=== PATIENT | male | born 1945 | race African-American/Black ===

== ENCOUNTER 2017-10-21 00:19 | Emergency (ER) | payer OTHER ==
[~2017-10-21] VITALS: Ht 177.8 cm; Wt 70.3 kg
[~2017-10-21 00:19] MED LIST: ROXICODONE5 MG PO
[2017-10-21 00:57] LABS: HEMATOCRIT 32.7 % (38.0-50.0); HEMOGLOBIN 10.5 G/DL (12.5-16.6); MCH 27.5 PG (29.0-34.0); MCHC 32.1 G/DL (30.0-36.0); MCV 85.6 FL (86-99); PLATELET COUNT 291 K/uL (156-360); RED BLOOD COUNT 3.82 M/uL (4.00-5.50); WHITE BLOOD COUNT 8.9 K/uL (4.1-10.2)
[2017-10-21 01:17] LABS: CHLORIDE 107 mEq/L (99-109); POTASSIUM 4.4 mEq/L (3.7-5.4); SODIUM 141 mEq/L (136-147)
[2017-10-21 01:18] LABS: GLUCOSE 116 mg/dL (70-99)
[2017-10-21 01:22] LABS: CREATININE 2.2 mg/dL (0.6-1.3); GFR ESTIMATE (CALCULATED) 38 mL/min/ (58.99-99999)
[2017-10-21 01:23] LABS: UREA NITROGEN (BUN) 36 mg/dL (9-23)
[2017-10-21 06:09] LABS: TROP-I INTERPRETATION NEGATIVE; TROPONIN-I 0.06 ng/mL (0.0-0.30)
[2017-10-21 06:36] VITALS: BP 181/78
== END 2017-10-21 06:39 | disposition short-term general hospital (02) ==
LOC: EME 00:19
DX: K92.2 Gastrointestinal hemorrhage, unspecified (principal); I10 Essential (primary) hypertension; F17.200 Nicotine dependence, unspecified, uncomplicated; Z88.0 Allergy status to penicillin
CPT/HCPCS: 80048; 84484; 85027; 86850; 86900; 86901; 93005; 99281; 99284